=== PATIENT | male | born 1950 | race Caucasian/White ===

== ENCOUNTER 2018-10-26 10:01 | Observation (INO) ==
--- NOTE | 2018-10-26 10:06 | Emergency Department Note ---
Disposition Clinical Impression: Atypical chest pain Disposition: Admitted As Inpatient Condition: Fair Referrals: NONE,PCP [Non-Partnered Physician] - Forms: ED Satisfaction Letter Time of Disposition: 11:40 Chest Pain HPI - General Chief Complaint: ED Chest Pain Stated Complaint: Chest Pain Time Seen by Provider: 10/26/18 10:02 Source: patient, EMS, other ([employer]) Mode of arrival: EMS Limitations: altered mental status (MRDD), physical limitation Vital Signs Reviewed: Yes Nursing Notes Reviewed: Yes - History of Present Illness HPI Narrative: Patient presents from a alf with history of some chest pains since about 845 this morning. His home in his chest with that indicated he had some soreness. He is unable to describe it. He has had a little bit of a cough and occasional shortness of breath for a month. This is not increased. As his normal amount of dyspnea on exertion. He has not had diaphoresis, nausea or gagging. He has not had fevers or chills. His had normal activity and no no fall or injury. He has not had visible rash or swelling. He has not had a lower extremity swelling or pains. He has had reported normal vital signs with stable atrial fibrillation. He has received aspirin prior to arrival, an EKG by EMS and an IV has been established. EKG was performed at 8:35 AM and showed bas anjana artifact with rate controlled atrial fibrillation. His rate of 75, axis of 44 and a QT/QTC of 390/435. There are no acute ST or T-wave changes to suggest ischemia or infarction. This is on my interpretation. Per his medical record he does have history of previous heart disease, elevate cholesterol, CHF. Has no history of hypertension, diabetes, obesity, smoking or DVT or PE. Family history is unknown. He does have a DNR CC status Onset (ago): minute(s) (75) Duration: constant Onset: during rest Pain Location: substernal Severity: unable Quality: other (Unable) Pain Radiation: none Improves with: nothing Worsens with: nothing Associated symptoms: Reports: other (Intermittent dyspnea and cough for a month. This is no different at this time.). Denies: nausea, vomiting, diaphoresis, dyspnea, syncope, palpitations, fever, cough, leg swelling Treatments prior to arrival chest pain: aspirin - Related Data Home Medications Medication Instructions Recorded Confirmed Acetaminophen [Tylenol] 325 mg PO Q6HR PRN 05/13/17 09/05/18 Aspirin 81 mg PO DAILY 05/13/17 09/05/18 Atorvastatin Calcium [Lipitor] 20 mg PO DAILY 05/13/17 09/05/18 Benztropine Mesylate 0.5 mg PO HS 05/13/17 09/05/18 Bismuth Subsalicylate 524 mg PO 8XD 05/13/17 09/05/18 [Pepto-Bismol] Calcium Carbonate/Magnesium Ox 1 each PO BID 05/13/17 09/05/18 [Oyster Shell Calcium-Magnes Tb] Digoxin [Lanoxin] 250 mcg PO DAILY 05/13/17 09/05/18 Diltiazem HCl [Diltiazem 24Hr Cd] 240 mg PO DAILY 05/13/17 09/05/18 Furosemide [Lasix] 40 mg PO DAILY 05/13/17 09/05/18 Gemfibrozil [Lopid] 600 mg PO BIDWM 05/13/17 09/05/18 Ibuprofen [Motrin Ib] 200 mg PO Q6H PRN 05/13/17 09/05/18 LORazepam [Ativan] 1 mg PO ONCE 05/13/17 09/05/18 Metoprolol Tartrate [Lopressor] 50 mg PO DAILY 05/13/17 09/05/18 Niacin (24 HR) [Niaspan] 500 mg PO HS 05/13/17 09/05/18 Omeprazole [PriLOSEC] 20 mg PO DAILY 05/13/17 09/05/18 Polyethylene Glycol 3350 [MiraLAX] 17 gm PO DAILY 05/13/17 09/05/18 Potassium Chloride [Klor-Con 10 meq PO DAILY 05/13/17 09/05/18 Sprinkle] Rivaroxaban [Xarelto] 20 mg PO DAILY 05/13/17 09/05/18 Spironolactone [Aldactone] 12.5 mg PO BID 05/13/17 09/05/18 risperiDONE [Risperdal] 0.75 mg PO HS 05/13/17 09/05/18 Previous Rx's Medication Instructions Recorded Meclizine HCl [Verticalm] 25 mg PO QID PRN #20 tablet 10/27/17 Allergies Allergy/AdvReac Type Severity Reaction Status Date / Time No Known Allergies Allergy Verified 02/02/17 17:28 All systems ED: reviewed and negative except as stated. Chest Pain PMH - Past Medical History Medical history: Reports: atrial fibrillation (On Xarelto), CHF, coronary artery disease, GERD, hyperlipidemia, other (MRDD) Surgical history: Reports: other (Cardiac ablation) Psychiatric history: Reports: anxiety - Social History Smoking Status: Never smoker Alcohol use: Reports: none Drug use: Reports: none Physical Exam - General Limitations: physical limitation General appearance: alert, in no apparent distress - Head Head exam: atraumatic, normocephalic, normal inspection - Eye Eye exam: Present: normal appearance, PERRL, EOMI - ENT ENT exam: normal exam, normal oropharynx, mucous membranes moist - Neck Neck exam: Present: normal inspection, full ROM, trachea midline - Chest Chest inspection: Present: normal inspection, symmetric chest wall rise. Absent: tenderness - Respiratory Respiratory exam: Present: normal lung sounds bilaterally. Absent: respiratory distress, wheezes, prolonged expiratory phase - Cardiovascular Cardiovascular exam: Present: irregular rhythm, normal heart sounds. Absent: tachycardia - Abdominal Exam Abdominal exam: Present: soft, Non-Tender, normal bowel sounds. Absent: tenderness, distention, guarding, rebound, rigidity, Dacosta's sign - Extremities Exam Extremities exam: Present: normal inspection, full ROM, normal capillary refill. Absent: tenderness, pedal edema, calf tenderness - Expanded Lower Extremity Exam Neurovascular/Tendon exam: Present: normal capillary refill. Absent: motor deficit, sensory deficit, tendon deficit Gait: not tested/not observed - Neurological Exam Neurological exam: Present: alert. Absent: motor sensory deficit - Psychiatric Psychiatric exam: Present: normal affect, normal mood. Absent: agitated, anxious - Skin Skin exam: Present: warm, dry, intact, normal color. Absent: diaphoresis, pallor Course Course Narrative: 1100: With return of all testing, care is discussed with Dr. Naylor. She states she will call the alf so they can discuss care with his guardian. She relates she or one of the nurses will call back to advise of the recommended course of care. 1115: We have been called back that the patient's guardian would like him observed in the hospital. I have contacted Dr. Crenshaw for inpatient care and serial troponins. Vital Signs Temperature 96.9 F L 10/26/18 10:04 Pulse Rate 67 10/26/18 10:04 Respiratory Rate 16 10/26/18 10:04 Blood Pressure 122/58 10/26/18 10:04 O2 Sat by Pulse Oximetry 95 10/26/18 10:04 Temperature 97 F L 10/26/18 11:07 Pulse Rate 71 10/26/18 11:07 Respiratory Rate 16 10/26/18 11:07 Blood Pressure 97/60 10/26/18 11:07 O2 Sat by Pulse Oximetry 95 10/26/18 11:07 Oxygen Delivery Oxygen Delivery Room Air Chest Pain - Differential Diagnosis Likely: atypical chest pain, costalchondritis, chest pain - Medical Records Medical records reviewed: Yes I reviewed the patient's medical records. - Lab Data Lab results reviewed: Yes I reviewed the patient's lab results. Result diagrams: 10/26/18 10:15 10/26/18 10:15 Lab Results 10/26/18 10/26/18 10/26/18 Range/Units 10:15 10:15 10:15 WBC 8.1 (4.3-11.1) K/mcL RBC 4.66 (4.19-5.50) M/mcL Hgb 13.9 (12.9-16.9) g/dL Hct 40.3 (37.5-50.1) % MCV 86.5 (83.0-100.0) fL MCH 29.8 (28.0-33.3) pg MCHC 34.5 (31.6-35.5) g/dL RDW 12.9 (11.5-14.5) % Plt Count 250 (140-400) K/mcL MPV 9.8 (9.4-12.4) fL Immature Gran % 0.2 (0-4) % Seg Neutrophils % 71.7 % Lymphocytes % 18.0 % Monocytes % 8.4 % Eosinophils % 1.1 % Basophils % 0.6 % Neutrophils # 5.8 (1.6-8.9) K/mcL Lymphocytes # 1.5 (0.6-4.6) K/mcL Monocytes # 0.7 (0.0-1.3) K/mcL Eosinophils # 0.1 (0.0-0.6) K/mcL Basophils # 0.1 (0.0-0.2) K/mcL PT 16.8 H (9.4-12.1) Seconds INR 1.5 APTT 44.3 H (26.0-36.0) Seconds Sodium (136-145) mEq/L Potassium (3.5-5.1) mEq/L Chloride (98-107) mEq/L Carbon Dioxide (23-29) mEq/L BUN (8-23) mg/dL Creatinine (0.70-1.30) mg/dL Est GFR ( Amer) (> 60) Est GFR (Non-Af Amer) (> 60) BUN/Creatinine Ratio (6-26) Glucose (70-105) mg/dL Calculated Osmolality (280-300) Calcium (8.6-10.3) mg/dL Troponin I (< 0.04) ng/mL B-Natriuretic Peptide 203 H (Less than 100) pg/mL Digoxin (0.8-2.0) ng/mL 10/26/18 10/26/18 Range/Units 10:15 10:15 WBC (4.3-11.1) K/mcL RBC (4.19-5.50) M/mcL Hgb (12.9-16.9) g/dL Hct (37.5-50.1) % MCV (83.0-100.0) fL MCH (28.0-33.3) pg MCHC (31.6-35.5) g/dL RDW (11.5-14.5) % Plt Count (140-400) K/mcL MPV (9.4-12.4) fL Immature Gran % (0-4) % Seg Neutrophils % % Lymphocytes % % Monocytes % % Eosinophils % % Basophils % % Neutrophils # (1.6-8.9) K/mcL Lymphocytes # (0.6-4.6) K/mcL Monocytes # (0.0-1.3) K/mcL Eosinophils # (0.0-0.6) K/mcL Basophils # (0.0-0.2) K/mcL PT (9.4-12.1) Seconds INR APTT (26.0-36.0) Seconds Sodium 137 (136-145) mEq/L Potassium 3.8 (3.5-5.1) mEq/L Chloride 100 (98-107) mEq/L Carbon Dioxide 30 H (23-29) mEq/L BUN 15 (8-23) mg/dL Creatinine 0.71 (0.70-1.30) mg/dL Est GFR ( Amer) > 60 (> 60) Est GFR (Non-Af Amer) > 60 (> 60) BUN/Creatinine Ratio 21 (6-26) Glucose 141 H (70-105) mg/dL Calculated Osmolality 287 (280-300) Calcium 9.4 (8.6-10.3) mg/dL Troponin I < 0.03 (< 0.04) ng/mL B-Natriuretic Peptide (Less than 100) pg/mL Digoxin 1.7 (0.8-2.0) ng/mL - Radiology Data Radiology results reviewed: Yes I reviewed the patient's radiology results. Single view chest x-ray is performed. This does not demonstrate evidence for infiltrate, effusion, pneumothorax, foreign body or heart failure. The cardiac silhouette is normal. I do not see abnormality to the osseous structures of the chest. This is on my interpretation. Impressions Chest X-Ray 10/26/18 10:03 IMPRESSION: 1. Low lung volumes with bibasilar atelectasis. 2. Stable cardiomegaly without overt failure. D/ / Taj Luz MD / Taj Luz MD Interpreting Provider: Taj Luz MD - EKG Data EKG attestation: Yes I reviewed and interpreted this EKG. EKG shows normal: axis, intervals, QRS complexes, ST-T waves Rate: normal (61) Rhythm: A.Fib Interpretation: no acute changes, unchanged when compared to prior tracing (date) Heart Score - Score History: Slightly Suspicious EKG: Normal Age: Greater than 65 Risk Factors: Equal/Greater than 3 risk factor or history of atherosclerotic disease Troponin: Less than normal limit HEART Score Total: 4
[2018-10-26 10:21] LABS: Basophils # 0.1 K/mcL (0.0-0.2); Basophils % 0.6 %; Eosinophils # 0.1 K/mcL (0.0-0.6); Eosinophils % 1.1 %; Hematocrit 40.3 % (37.5-50.1); Hemoglobin 13.9 g/dL (12.9-16.9); Immature Granulocytes % 0.2 % (0-4); Lymphocytes # 1.5 K/mcL (0.6-4.6); Mean Corpuscular HGB Conc 34.5 g/dL (31.6-35.5); Mean Corpuscular Hemoglobin 29.8 pg (28.0-33.3); Mean Corpuscular Volume 86.5 fL (83.0-100.0); Mean Platelet Volume 9.8 fL (9.4-12.4); Monocytes # 0.7 K/mcL (0.0-1.3); Monocytes % 8.4 %; Neutrophils # 5.8 K/mcL (1.6-8.9); Platelet Count 250 K/mcL (140-400); Red Blood Count 4.66 M/mcL (4.19-5.50); Red Cell Distribution Width 12.9 % (11.5-14.5); Segmented Neutrophils % 71.7 %; White Blood Count 8.1 K/mcL (4.3-11.1)
[2018-10-26 10:28] LABS: INR 1.5; Prothrombin Time 16.8 Seconds (9.4-12.1)
[2018-10-26 10:31] LABS: Activated Partial Thrombo Time 44.3 Seconds (26.0-36.0)
[2018-10-26 10:40] LABS: Troponin I < 0.03 ng/mL (< 0.04)
[2018-10-26 10:41] LABS: BUN/Creatinine Ratio 21 (6-26); Blood Urea Nitrogen 15 mg/dL (8-23); Calcium 9.4 mg/dL (8.6-10.3); Carbon Dioxide 30 mEq/L (23-29); Chloride 100 mEq/L (98-107); Glucose 141 mg/dL (70-105); Osmolality,Calculated 287 (280-300); Potassium 3.8 mEq/L (3.5-5.1); Sodium 137 mEq/L (136-145); eGFR For African Americans > 60 (> 60); eGFR For Non-African Americans > 60 (> 60)
[2018-10-26] MEDS ORDERED: Naloxone 0.4 MG/ML INJ IVP PRN (12:46)
[2018-10-26] MEDS ORDERED: Mag Hydrox/Al Hydrox/Simeth 30 ML UDC PO PRN (12:46)
[2018-10-26] MEDS ORDERED: MOM Conc 10 ML UD.LIQ PO PRN (12:46)
[2018-10-26] MEDS ORDERED: Ondansetron ODT 4 MG TAB.RAPDIS SL PRN (12:46)
--- NOTE | 2018-10-26 15:39 | Internal Med History&Physical ---
Date of Encounter: 10/26/18 Time of Encounter: 15:25 Assessment and Plan (1) Atypical chest pain Current visit: Yes Status: Acute Repeat cardiac enzymes have been ordered (2) Atrial fibrillation Current visit: Yes Status: Chronic Continue Xarelto and metoprolol. Lanoxin level will be checked. Qualifiers: Atrial fibrillation type: chronic Qualified Code(s): I48.2 - Chronic atrial fibrillation Internal Medicine - H&P: HPI Chief complaint: Chest pain Admitted From: Emergency Dept Plans for Post Hospital Care: Home History of present illness: Mr. Domingo is a 68 year old male who was sent from a local alf to ER after he appeared to have chest discomfort this morning. He was unable to give reliable history because of MRDD. He was evaluated in emergency room and workup was unremarkable. His guardian felt it was preferable to admit him overnight to the hospital to rule out MD. Cardiovascular history is significant for chronic atrial fibrillation. The chart reports a diagnosis of CHF and CAD not otherwise specified. There is mention of cardiac ablation without additional details available. There is no known hypertension DVT or pulmonary embolus. Past Med Surg Social Fam HX - Past Medical History Medical history: atrial fibrillation, CHF, coronary artery disease, GERD, hyperlipidemia, other Additional medical history: dermatitis, scoliosis Psychiatric history: anxiety - Past Surgical History Surgical History: other (Cardiac ablation) Additional surgical history: cardiac ablation - Social History Smoking Status: Never smoker Smokeless Tobacco Status: No Alcohol use: none Drug use: none Internal Medicine - H&P: Meds Acetaminophen [Tylenol] 325 mg PO Q6HR PRN 05/13/17 [History] Aspirin 81 mg PO DAILY 05/13/17 [History] Atorvastatin Calcium [Lipitor] 20 mg PO DAILY 05/13/17 [History] Benztropine Mesylate 0.5 mg PO HS 05/13/17 [History] Bismuth Subsalicylate [Pepto-Bismol] 524 mg PO 8XD 05/13/17 [History] Calcium Carbonate/Magnesium Ox [Oyster Shell Calcium-Magnes Tb] 1 each PO BID 05/13/17 [History] Digoxin [Lanoxin] 250 mcg PO DAILY 05/13/17 [History] Diltiazem HCl [Diltiazem 24Hr Cd] 240 mg PO DAILY 05/13/17 [History] Furosemide [Lasix] 40 mg PO DAILY 05/13/17 [History] Gemfibrozil [Lopid] 600 mg PO BIDWM 05/13/17 [History] Ibuprofen [Motrin Ib] 200 mg PO Q6H PRN 05/13/17 [History] LORazepam [Ativan] 1 mg PO ONCE 05/13/17 [History] Metoprolol Tartrate [Lopressor] 50 mg PO DAILY 05/13/17 [History] Niacin (24 HR) [Niaspan] 500 mg PO HS 05/13/17 [History] Omeprazole [PriLOSEC] 20 mg PO DAILY 05/13/17 [History] Polyethylene Glycol 3350 [MiraLAX] 17 gm PO DAILY 05/13/17 [History] Potassium Chloride [Klor-Con Sprinkle] 10 meq PO DAILY 05/13/17 [History] Rivaroxaban [Xarelto] 20 mg PO DAILY 05/13/17 [History] Spironolactone [Aldactone] 12.5 mg PO BID 05/13/17 [History] risperiDONE [Risperdal] 0.75 mg PO HS 05/13/17 [History] Meclizine HCl [Verticalm] 25 mg PO QID PRN #20 tablet 10/27/17 [Rx] Donepezil [Aricept] 5 mg PO HS 10/26/18 [History] Allergy/AdvReac Type Severity Reaction Status Date / Time No Known Allergies Allergy Verified 02/02/17 17:28 All Systems PM: A 10-system review of systems was performed and is negative for pertinent findings except as documented above in the HPI. Review of systems: Unobtainable from the patient. - Constitutional Vitals: Temp Pulse Resp BP Pulse Ox 98.0 F 62 16 152/79 95 10/26/18 12:47 10/26/18 12:47 10/26/18 12:47 10/26/18 12:47 10/26/18 12:47 Exam: Gen.: He is a well-developed well-nourished male lying in bed who appears in no acute distress. HEENT: Head is atraumatic and normocephalic. Eyes: EOMI. There is no scleral icterus. Mouth: Mucosa is moist. Neck: There is no thyromegaly or adenopathy noted. Heart: Irregularly irregular without murmurs or gallops Chest: There is no tenderness to light chest wall compression. Lungs: No wheezes or crackles are heard. Abdomen: Soft and nontender. No masses or guarding are noted. Extremities: There is no cyanosis edema or clubbing noted. Dorsalis pedis and posttibial pulses are trace palpable bilaterally. Neurologic: Mental status: He is awake but cannot answer questions reliably. He states he is 14 years old. He answers most other questions simply with "yes". Cranial nerves: Smile is symmetric. Forehead wrinkles bilaterally. Tongue protrudes midline. EOMI. Motor: There is no pronator drift. Cerebellar: He does not understand finger to nose testing. No further neurologic testing is attempted. Skin: Warm and dry Internal Med - H&P Results - Labs CBC & Chem 7: 10/26/18 10:15 10/26/18 10:15 Labs: Short CBC 10/26/18 Range/Units 10:15 WBC 8.1 (4.3-11.1) K/mcL Hgb 13.9 (12.9-16.9) g/dL Hct 40.3 (37.5-50.1) % Plt Count 250 (140-400) K/mcL Neutrophils # 5.8 (1.6-8.9) K/mcL BMP 10/26/18 10:15 Sodium 137 Potassium 3.8 Chloride 100 Carbon Dioxide 30 H BUN 15 Creatinine 0.71 Glucose 141 H Calcium 9.4 Cardiac Enzymes 10/26/18 10/26/18 Range/Units 10:15 13:16 Troponin I < 0.03 < 0.03 (< 0.04) ng/mL - Impressions ITS Impressions Chest X-Ray 10/26/18 10:03 IMPRESSION: 1. Low lung volumes with bibasilar atelectasis. 2. Stable cardiomegaly without overt failure. D/ / Taj Luz MD / Taj Luz MD Interpreting Provider: Taj Luz MD
--- NOTE | 2018-10-26 16:17 | Electrocardiograph Report ---
[place] [id number] Test Date: 2018-10-26 Pat Name: Albert Domingo Department: EDP-16 Room: [facility] Gender: M [employer]: : [id number] Requested By: Ed Zambrano Order Number: [id number] Reading MD: Andres Bishop Measurements Intervals [place] Rate: 61 P: ND: QRS: 45 QRSD: 85 T: 14 QT: 445 QTc: 449 Interpretive Statements Atrial fibrillation Borderline ST depression, diffuse leads 12 Lead; Dilip Electronically Signed On 10-26-2018 16:15:52 EDT by Andres Bishop
[2018-10-26] MEDS ORDERED: *HR* Rivaroxaban 10 MG TABLET PO SCH (17:00)
[2018-10-27 06:31] VITALS: BP 112/61
[2018-10-27] MEDS ORDERED: Aspirin 81 MG TAB.CHEW PO SCH (09:00)
--- NOTE | 2018-10-27 09:49 | Discharge Summary ---
Date of Encounter: 10/27/18 Time of Encounter: 09:40 - Discharge Diagnosis (1) Atypical chest pain Priority: Primary Status: Acute (2) Atrial fibrillation Priority: Secondary Status: Chronic Qualifiers: Atrial fibrillation type: chronic Qualified Code(s): I48.2 - Chronic atrial fibrillation Hospital course: Mr. Domingo is a 68 year old male who was sent from a local [facility] to ER after he appeared to have chest discomfort earlier in the morning. He was unable to give reliable history because of MRDD. He was evaluated in emergency room and workup was unremarkable. His guardian felt it was preferable to admit him overnight to the hospital to rule out MT. Initial orders written by the emergency room physician. I saw him on October 26 and performed a history and physical. Repeat cardiac enzymes showed no evidence of myocardial damage. When I saw him October 27 he stated he felt good but generally answered "yes" to questions. He will be discharged back to [facility] and follow with his PCP Dr. Naylor. - Time Spent with Patient Total time spent providing and/or coordinating discharge services: - Discharge Medications Prescriptions: Continued Polyethylene Glycol 3350 [MiraLAX] 17 gm PO DAILY Bismuth Subsalicylate [Pepto-Bismol] 524 mg PO 8XD Ibuprofen [Motrin Ib] 200 mg PO Q6H PRN PRN Reason: Pain LORazepam [Ativan] 1 mg PO ONCE Acetaminophen [Tylenol] 325 mg PO Q6HR PRN PRN Reason: pain, fever risperiDONE [Risperdal] 0.75 mg PO HS Diltiazem HCl [Diltiazem 24Hr Cd] 240 mg PO DAILY Benztropine Mesylate 0.5 mg PO HS Spironolactone [Aldactone] 12.5 mg PO BID Rivaroxaban [Xarelto] 20 mg PO DAILY Calcium Carbonate/Magnesium Ox [Oyster Shell Calcium-Magnes Tb] 1 each PO BID Omeprazole [PriLOSEC] 20 mg PO DAILY Metoprolol Tartrate [Lopressor] 50 mg PO DAILY Gemfibrozil [Lopid] 600 mg PO BIDWM Aspirin 81 mg PO DAILY Digoxin [Lanoxin] 250 mcg PO DAILY Atorvastatin Calcium [Lipitor] 20 mg PO DAILY Potassium Chloride [Klor-Con Sprinkle] 10 meq PO DAILY Niacin (24 HR) [Niaspan] 500 mg PO HS Furosemide [Lasix] 40 mg PO DAILY Meclizine HCl [Verticalm] 25 mg PO QID PRN #20 tablet PRN Reason: Vertigo Donepezil [Aricept] 5 mg PO HS Home Medications: Acetaminophen [Tylenol] 325 mg PO Q6HR PRN 05/13/17 [History] Aspirin 81 mg PO DAILY 05/13/17 [History] Atorvastatin Calcium [Lipitor] 20 mg PO DAILY 05/13/17 [History] Benztropine Mesylate 0.5 mg PO HS 05/13/17 [History] Bismuth Subsalicylate [Pepto-Bismol] 524 mg PO 8XD 05/13/17 [History] Calcium Carbonate/Magnesium Ox [Oyster Shell Calcium-Magnes Tb] 1 each PO BID 05/13/17 [History] Digoxin [Lanoxin] 250 mcg PO DAILY 05/13/17 [History] Diltiazem HCl [Diltiazem 24Hr Cd] 240 mg PO DAILY 05/13/17 [History] Furosemide [Lasix] 40 mg PO DAILY 05/13/17 [History] Gemfibrozil [Lopid] 600 mg PO BIDWM 05/13/17 [History] Ibuprofen [Motrin Ib] 200 mg PO Q6H PRN 05/13/17 [History] LORazepam [Ativan] 1 mg PO ONCE 05/13/17 [History] Metoprolol Tartrate [Lopressor] 50 mg PO DAILY 05/13/17 [History] Niacin (24 HR) [Niaspan] 500 mg PO HS 05/13/17 [History] Omeprazole [PriLOSEC] 20 mg PO DAILY 05/13/17 [History] Polyethylene Glycol 3350 [MiraLAX] 17 gm PO DAILY 05/13/17 [History] Potassium Chloride [Klor-Con Sprinkle] 10 meq PO DAILY 05/13/17 [History] Rivaroxaban [Xarelto] 20 mg PO DAILY 05/13/17 [History] Spironolactone [Aldactone] 12.5 mg PO BID 05/13/17 [History] risperiDONE [Risperdal] 0.75 mg PO HS 05/13/17 [History] Meclizine HCl [Verticalm] 25 mg PO QID PRN #20 tablet 10/27/17 [Rx] Donepezil [Aricept] 5 mg PO HS 10/26/18 [History] Allergies/Adverse Reactions: Allergy/AdvReac Type Severity Reaction Status Date / Time No Known Allergies Allergy Verified 02/02/17 17:28 Date of admission: 10/26/18 11:44 Primary care physician: Iveth Naylor - Constitutional Vitals: Temp Pulse Resp BP Pulse Ox 98.3 F 73 17 112/61 96 10/27/18 06:30 10/27/18 06:30 10/27/18 06:30 10/27/18 06:30 10/27/18 06:30 - Patient Status Disposition: Home, Self-Care Condition: Fair - Discharge Instructions Follow Up With: Iveth Naylor MD [Primary Care Provider] - 1 week - Diet and Activity Activity: resume usual activities as tolerated Diet: advance to your usual diet
== END 2018-10-27 12:20 | disposition home or self-care (01) ==
LOC: EMEROOPIK 10:01 → INPPIK 10:01
PROVIDERS: ADMIT Internal Medicine; ATTEND Internal Medicine